=== PATIENT | male | born 1975 | race Hispanic/Latino ===

== ENCOUNTER 2020-07-03 12:04 | Emergency (ER) | payer OTHER ==
[2020-07-03] MEDS ORDERED: diphenhydrAMINE 25 MG CAP PO ONE (13:03)
--- NOTE | 2020-07-03 13:26 | Emergency Department Report ---
History of Present Illness - General Chief Complaint: Overdose Stated Complaint: POSS OVERDOSE OF CELEXIA Time Seen by Provider: 07/03/20 12:56 Source: patient, EMS Mode of arrival: Wheelchair Limitations: No Limitations - History of Present Illness Initial Comments: Patient is a 45-year-old male who states he excellently took a double dose of his Celexa this morning while in a to. Patient is not sure if it is the extra Celexa or the fact that he is nervous about overdosing the patient is complaining of anxiety. States he has some palpitations. Patient has like a hot sensation to his face and mild headache. States symptoms are starting to calm down but not completely resolved. He denies nausea vomiting diarrhea or syncope. Patient is adamant that he was not trying to harm himself. - Related Data Allergies Allergy/AdvReac Type Severity Reaction Status Date / Time amoxicillin Allergy Unknown Verified 07/03/20 12:21 metformin Allergy Unknown Verified 07/03/20 12:21 ED Review of Systems ROS: Stated complaint: POSS OVERDOSE OF CELEXIA Other details as noted in HPI Comment: All other systems reviewed and negative ED Past Medical Hx - Past Medical History Previous Medical History?: No Additional medical history: anxiety, depression - Surgical History Past Surgical History?: No - Social History Smoking Status: Never Smoker Substance Use Type: Alcohol ED Physical Exam - General Limitations: No Limitations General appearance: alert, in no apparent distress - Head Head exam: Present: atraumatic, normocephalic - Eye Eye exam: Present: normal appearance - ENT ENT exam: Present: mucous membranes moist - Neck Neck exam: Present: normal inspection - Respiratory Respiratory exam: Present: normal lung sounds bilaterally. Absent: respiratory distress, wheezes, rales, rhonchi - Cardiovascular Cardiovascular Exam: Present: normal rhythm, tachycardia. Absent: systolic murmur, diastolic murmur, rubs, gallop - GI/Abdominal GI/Abdominal exam: Present: soft, normal bowel sounds. Absent: distended, tenderness, guarding, rebound - Rectal Rectal exam: Present: deferred - Extremities Exam Extremities exam: Present: normal inspection - Back Exam Back exam: Present: normal inspection - Neurological Exam Neurological exam: Present: alert, oriented X3 - Psychiatric Psychiatric exam: Present: normal affect, normal mood - Skin Skin exam: Present: warm, dry, intact, normal color. Absent: rash ED Course Vital Signs 07/03/20 12:24 Temperature 98.5 F Pulse Rate 117 H Respiratory 20 Rate Blood Pressure 147/97 O2 Sat by Pulse 96 Oximetry ED Medical Decision Making - Medical Decision Making Patient has some mild anxiety and tachycardia. Patient was given a dose of Benadryl to combat EPS syndrome. Is stable for discharge. Critical care attestation.: If time is entered above; I have spent that time in minutes in the direct care of this critically ill patient, excluding procedure time. ED Disposition Clinical Impression: Accidental overdose Disposition: DC-01 TO HOME OR SELFCARE Is pt being admited?: No Does the pt Need Aspirin: No Condition: Stable Instructions: Accidental Drug Poisoning, Adult Time of Disposition: 13:26
[2020-07-03 14:39] VITALS: BP 142/88
== END 2020-07-03 14:00 | disposition home or self-care (01) ==
LOC: ED 12:04
DX: T43.221A Poisoning by selective serotonin reuptake inhibitors, accidental (unintentional), initial encounter (principal); R00.0 Tachycardia, unspecified; Z88.1 Allergy status to other antibiotic agents; Z88.8 Allergy status to other drugs, medicaments and biological substances; Y92.89 Other specified places as the place of occurrence of the external cause
CPT/HCPCS: 93005